=== PATIENT | male | born 1965 | race Caucasian/White ===

== ENCOUNTER 2017-05-08 15:30 | Inpatient (IN) | payer MEDICAID ==
[2017-05-08] MEDS: LACTATED RINGER'S 1,000 ML IV (15:57)
[2017-05-08] MEDS: SOD CHLORIDE 0.9% 2,000 ML IV (16:01)
[2017-05-08] MEDS: HYDROmorphONE 1 MG/ML SYG IV ×2 (16:06→17:31)
[2017-05-08] MEDS: HYDROCORTISONE 100 MG INJ IV ×3 (16:07→23:23)
[2017-05-08] MEDS: ONDANSETRON 4 MG INJ IV (16:08)
[2017-05-08 16:15] LABS: ADD MAN DIFF? NO
[2017-05-08 16:18] LABS: WHITE BLOOD COUNT 7.2 10^3/ul (4.8-10.8)
[2017-05-08 16:18] LABS: BASOPHILS % 0.3 % (0.0-2.0); EOSINOPHILS % 0.6 % (0.0-7.0); LYMPHOCYTES # 1.7 10^3/ul (0.8-2.9); MEAN CORPUSCULAR HEMOGLOBIN 27.2 pg (29.0-33.0); MEAN CORPUSCULAR HGB CONC 32.4 g/dl (32.0-37.0); MEAN CORPUSCULAR VOLUME 83.9 fl (82.0-101.0); MEAN PLATELET VOLUME 10.7 fl (7.4-10.4); MONOCYTE # 0.4 10^3/ul (0.3-0.9); MONOCYTES % 5.3 % (0.0-11.0); NEUTROPHIL # 5.1 10^3/ul (1.6-7.5); NEUTROPHILS % 70.5 % (39.0-77.0); PLATELET COUNT 238 10^3/UL (140-415); RED BLOOD COUNT 4.41 10^6/ul (4.70-6.10); RED CELL DISTRIBUTION WIDTH 14.6 % (11.5-14.5)
[2017-05-08 16:36] LABS: ANION GAP 18 (8-16); BLOOD UREA NITROGEN 40 mg/dl (7-20); CALCIUM 8.9 mg/dl (8.4-10.2); CARBON DIOXIDE 28 mmol/L (21-31); CHLORIDE 101 mmol/L (97-110); CREATININE 1.34 mg/dl (0.61-1.24); GLUCOSE 153 mg/dl (70-220); POTASSIUM 4.5 mmol/L (3.5-5.1); SODIUM 142 mmol/L (135-144)
[2017-05-08 16:51] LABS: LACTIC ACID 3.7 mmol/L (0.5-2.0)
[2017-05-08] MEDS: AZTREONAM 1 GM/NS (PMX) 50 ML IVPB (18:17)
[2017-05-08] MEDS ORDERED: NA PHOSPHATE/BIPHOS 133 ML ENEMA PR (18:30)
[2017-05-08] MEDS ORDERED: NACL 0.9% 3 ML SYG IV (18:30)
[2017-05-08] MEDS ORDERED: MAGNESIUM HYDROXIDE 30ML CUP PO (18:30)
[2017-05-08] MEDS ORDERED: ACETAMINOPHEN 325 MG TAB PO (18:30)
[2017-05-08] MEDS ORDERED: DOCUSATE SODIUM 100 MG CAP PO (18:30)
[2017-05-08 18:53] LABS: CREATINE KINASE 273 IU/L (23-200)
[2017-05-08] MEDS ORDERED: GLUCAGON 1 MG INJ IM (19:45)
[2017-05-08] MEDS ORDERED: DEXTROSE 50% 50 ML SYRINGE IV ×2 (19:45)
[2017-05-08] MEDS ORDERED: GLUCOSE GEL 15 GRAM TUBE PO ×2 (19:45)
[2017-05-08] MEDS ORDERED: GLUCOSE GEL 15 GRAM TUBE BUCCAL (19:45)
[2017-05-08 19:52] LABS: THYROID STIMULATING HORMONE 0.529 MIU/L (0.465-4.680)
[2017-05-08 19:52] LABS: LACTIC ACID 1.4 mmol/L (0.5-2.0)
[2017-05-08] MEDS: VANCOMYCIN 1 GM (PMX) 250 ML IVPB (19:54)
[2017-05-08 20:03] LABS: ALANINE AMINOTRANSFERASE 48 IU/L (13-69); ALBUMIN 4.1 g/dl (3.3-4.9); ALKALINE PHOSPHATASE 86 IU/L (42-121); ASPARTATE AMINO TRANSFERASE 66 IU/L (15-46); BILIRUBIN,INDIRECT 0.2 mg/dl (0-1.1); BILIRUBIN,TOTAL 0.2 mg/dl (0.2-1.3)
[2017-05-08] MEDS: HYDROmorphONE 0.5 MG/0.5 ML SYG IV (20:14)
[2017-05-08] MEDS: SOD CHLORIDE 0.9% 1,000 ML IV (20:18)
[2017-05-08] MEDS: INSULIN ASPART [NOVOLOG] 3 ML PEN SC (21:00)
[2017-05-08 21:39] LABS: LACTIC ACID 1.4 mmol/L (0.5-2.0)
[2017-05-08] MEDS: INSULIN GLARGINE [LANtus] 3 ML PEN SC (23:06)
[2017-05-09] MEDS: HYDROmorphONE 0.5 MG/0.5 ML SYG IV ×6 (00:32→20:10)
[2017-05-09] MEDS: ACCU-CHEK XX (02:00)
[2017-05-09] MEDS: SOD CHLORIDE 0.9% 1,000 ML IV ×2 (04:24→12:17)
[2017-05-09 05:22] LABS: ADD MAN DIFF? NO
[2017-05-09 05:28] LABS: WHITE BLOOD COUNT 8.4 10^3/ul (4.8-10.8)
[2017-05-09 05:28] LABS: BASOPHILS % 0.2 % (0.0-2.0); HEMATOCRIT 31.7 % (42.0-52.0); HEMOGLOBIN 10.3 g/dl (14.0-18.0); LYMPHOCYTES # 1.3 10^3/ul (0.8-2.9); LYMPHOCYTES % 15.4 % (15.0-51.0); MEAN CORPUSCULAR HEMOGLOBIN 27.3 pg (29.0-33.0); MEAN CORPUSCULAR HGB CONC 32.5 g/dl (32.0-37.0); MEAN CORPUSCULAR VOLUME 84.1 fl (82.0-101.0); MONOCYTE # 0.5 10^3/ul (0.3-0.9); MONOCYTES % 5.4 % (0.0-11.0); NEUTROPHIL # 6.6 10^3/ul (1.6-7.5); NEUTROPHILS % 78.6 % (39.0-77.0); PLATELET COUNT 180 10^3/UL (140-415); RED BLOOD COUNT 3.77 10^6/ul (4.70-6.10); RED CELL DISTRIBUTION WIDTH 14.7 % (11.5-14.5)
[2017-05-09 06:18] LABS: ALANINE AMINOTRANSFERASE 46 IU/L (13-69); ALBUMIN 3.6 g/dl (3.3-4.9); ALKALINE PHOSPHATASE 66 IU/L (42-121); ANION GAP 11 (8-16); ASPARTATE AMINO TRANSFERASE 44 IU/L (15-46); BILIRUBIN,INDIRECT 0.3 mg/dl (0-1.1); BILIRUBIN,TOTAL 0.3 mg/dl (0.2-1.3); BLOOD UREA NITROGEN 25 mg/dl (7-20); CALCIUM 8.6 mg/dl (8.4-10.2); CARBON DIOXIDE 29 mmol/L (21-31); CHLORIDE 106 mmol/L (97-110); CREATININE 1.01 mg/dl (0.61-1.24); GLUCOSE 159 mg/dl (70-220); MAGNESIUM 2.1 mg/dl (1.7-2.5); POTASSIUM 4.5 mmol/L (3.5-5.1); SODIUM 141 mmol/L (135-144); TOTAL PROTEIN 6.6 g/dl (6.1-8.1)
[2017-05-09] MEDS: PANTOPRAZOLE (EC) 40 MG TAB PO (06:28)
[2017-05-09] MEDS: HYDROCORTISONE 100 MG INJ IV ×3 (06:28→17:22)
[2017-05-09 07:52] LABS: HEMOGLOBIN A1C 7.9 % (0-5.9)
[2017-05-09] MEDS: INSULIN ASPART [NOVOLOG] 3 ML PEN SC ×4 (08:00→20:21)
[2017-05-09 08:02] LABS: ADD UMIC YES; UR ASCORBIC ACID NEGATIVE (NEGATIVE); UR BILIRUBIN (Dip) NEGATIVE (NEGATIVE); UR BLOOD (Dip) NEGATIVE (NEGATIVE); UR CLARITY CLEAR (CLEAR); UR COLOR YELLOW (YELLOW); UR GLUCOSE (Dip) 2+ mg/dL (NEGATIVE); UR KETONES (Dip) NEGATIVE (NEGATIVE); UR LEUKOCYTE ESTERASE (Dip) NEGATIVE Leu/ul (NEGATIVE); UR NITRITE (Dip) NEGATIVE (NEGATIVE); UR RBC 4 /HPF (0-5); UR SPECIFIC GRAVITY (Dip) 1.016 (1.003-1.030); UR TOTAL PROTEIN (Dip) 1+ mg/dl (NEGATIVE); UR UROBILINOGEN (Dip) NEGATIVE (NEGATIVE); UR WBC 0 /HPF (0-5)
[2017-05-09] MEDS: FLUDROCORTISONE 0.1 MG TAB PO (08:13)
[2017-05-09] MEDS ORDERED: ENOXAPARIN 40 MG/0.4 ML SYG SC (09:00)
[2017-05-09] MEDS: ONDANSETRON 4 MG INJ IV (10:02)
[2017-05-09] MEDS: BISACODYL 10 MG SUPP PR (14:31)
[2017-05-09] MEDS: morphine 2 MG INJ IV (20:13)
[2017-05-09] MEDS: INSULIN GLARGINE [LANtus] 3 ML PEN SC (20:20)
[2017-05-10] MEDS: morphine 2 MG INJ IV ×6 (00:17→23:03)
[2017-05-10] MEDS: ACCU-CHEK XX (02:00)
[2017-05-10] MEDS: HYDROCORTISONE 100 MG INJ IV ×3 (02:18→11:54)
[2017-05-10] MEDS ORDERED: VANCOMYCIN IV PER PHARMACY XX (05:00)
[2017-05-10] MEDS: PANTOPRAZOLE (EC) 40 MG TAB PO (05:30)
[2017-05-10] MEDS ORDERED: PIPER-TAZO 3.375 GM IV (PMX) 50 ML IV (06:00)
[2017-05-10] MEDS: INSULIN ASPART [NOVOLOG] 3 ML PEN SC ×4 (08:00→20:40)
[2017-05-10] MEDS: FLUDROCORTISONE 0.1 MG TAB PO (08:07)
[2017-05-10] MEDS: VANCOMYCIN 1.5 GM in DEXTROSE 5% 500 ML IVPB (08:07)
[2017-05-10] MEDS ORDERED: HYDROmorphONE 2 MG TAB PO (15:00)
[2017-05-10 15:18] LABS: ADD MAN DIFF? NO
[2017-05-10 15:20] LABS: BASOPHILS % 0.2 % (0.0-2.0); EOSINOPHILS % 0.2 % (0.0-7.0); HEMATOCRIT 34.8 % (42.0-52.0); HEMOGLOBIN 11.4 g/dl (14.0-18.0); LYMPHOCYTES # 1.3 10^3/ul (0.8-2.9); LYMPHOCYTES % 15.7 % (15.0-51.0); MEAN CORPUSCULAR HEMOGLOBIN 27.1 pg (29.0-33.0); MEAN CORPUSCULAR HGB CONC 32.8 g/dl (32.0-37.0); MEAN CORPUSCULAR VOLUME 82.9 fl (82.0-101.0); MEAN PLATELET VOLUME 10.7 fl (7.4-10.4); MONOCYTE # 0.3 10^3/ul (0.3-0.9); MONOCYTES % 4.1 % (0.0-11.0); NEUTROPHIL # 6.6 10^3/ul (1.6-7.5); NEUTROPHILS % 79.4 % (39.0-77.0); PLATELET COUNT 179 10^3/UL (140-415); RED CELL DISTRIBUTION WIDTH 14.7 % (11.5-14.5)
[2017-05-10 15:20] LABS: WHITE BLOOD COUNT 8.3 10^3/ul (4.8-10.8)
[2017-05-10 15:37] LABS: ALANINE AMINOTRANSFERASE 48 IU/L (13-69); ALBUMIN 3.9 g/dl (3.3-4.9); ALBUMIN/GLOBULIN RATIO 1.18; ALKALINE PHOSPHATASE 71 IU/L (42-121); ANION GAP 12 (8-16); ASPARTATE AMINO TRANSFERASE 42 IU/L (15-46); BILIRUBIN,INDIRECT 0.2 mg/dl (0-1.1); BILIRUBIN,TOTAL 0.2 mg/dl (0.2-1.3); BLOOD UREA NITROGEN 22 mg/dl (7-20); CALCIUM 8.8 mg/dl (8.4-10.2); CARBON DIOXIDE 33 mmol/L (21-31); CHLORIDE 100 mmol/L (97-110); CREATININE 1.04 mg/dl (0.61-1.24); GLUCOSE 176 mg/dl (70-220); POTASSIUM 3.6 mmol/L (3.5-5.1); SODIUM 141 mmol/L (135-144); TOTAL PROTEIN 7.2 g/dl (6.1-8.1)
[2017-05-10] MEDS: VANCOMYCIN 1.25 GM in SODIUM CHLORIDE 0.45 % 250 ML IVPB (17:15)
[2017-05-10 17:54] LABS: IRON 30 ug/dl (35-150)
[2017-05-10] MEDS: LACTATED RINGER'S 500 ML IV (17:55)
[2017-05-10 18:03] LABS: % IRON SATURATION 8 % SAT (22-52); TOTAL IRON BINDING CAPACITY 365 ug/dl (241-421)
[2017-05-10 18:39] LABS: FERRITIN 8.5 ng/ml (11.1-264.0)
[2017-05-10] MEDS: CYANOCOBALAMIN 1000 MCG INJ IM (20:29)
[2017-05-10] MEDS: HYDROCORTISONE 5 MG TAB PO (20:29)
[2017-05-10] MEDS: INSULIN GLARGINE [LANtus] 3 ML PEN SC (20:39)
[2017-05-10] MEDS ORDERED: HYDROCORTISONE 5 MG TAB PO (21:00)
[2017-05-11] MEDS: ACCU-CHEK XX (02:00)
[2017-05-11] MEDS: morphine 2 MG INJ IV ×5 (03:16→21:45)
[2017-05-11] MEDS: VANCOMYCIN 1.25 GM in SODIUM CHLORIDE 0.45 % 250 ML IVPB ×2 (05:39→19:21)
[2017-05-11] MEDS: PANTOPRAZOLE (EC) 40 MG TAB PO (05:39)
[2017-05-11 07:01] LABS: ADD MAN DIFF? NO
[2017-05-11 07:08] LABS: WHITE BLOOD COUNT 7.1 10^3/ul (4.8-10.8)
[2017-05-11 07:08] LABS: BASOPHIL # 0.1 10^3/ul (0.0-0.1); BASOPHILS % 0.7 % (0.0-2.0); EOSINOPHILS # 0.2 10^3/ul (0.0-0.5); EOSINOPHILS % 2.5 % (0.0-7.0); HEMATOCRIT 33.2 % (42.0-52.0); HEMOGLOBIN 10.6 g/dl (14.0-18.0); LYMPHOCYTES # 2.6 10^3/ul (0.8-2.9); LYMPHOCYTES % 35.9 % (15.0-51.0); MEAN CORPUSCULAR HEMOGLOBIN 26.8 pg (29.0-33.0); MEAN CORPUSCULAR HGB CONC 31.9 g/dl (32.0-37.0); MEAN CORPUSCULAR VOLUME 84.1 fl (82.0-101.0); MEAN PLATELET VOLUME 11.6 fl (7.4-10.4); MONOCYTE # 0.7 10^3/ul (0.3-0.9); MONOCYTES % 10.4 % (0.0-11.0); NEUTROPHIL # 3.6 10^3/ul (1.6-7.5); NEUTROPHILS % 50.1 % (39.0-77.0); PLATELET COUNT 170 10^3/UL (140-415); RED BLOOD COUNT 3.95 10^6/ul (4.70-6.10); RED CELL DISTRIBUTION WIDTH 14.6 % (11.5-14.5)
[2017-05-11 07:19] LABS: ANION GAP 13 (8-16); BLOOD UREA NITROGEN 27 mg/dl (7-20); CALCIUM 8.4 mg/dl (8.4-10.2); CARBON DIOXIDE 34 mmol/L (21-31); CHLORIDE 102 mmol/L (97-110); GLUCOSE 99 mg/dl (70-220); MAGNESIUM 1.8 mg/dl (1.7-2.5); PHOSPHORUS 3.9 mg/dl (2.5-4.9); POTASSIUM 4.1 mmol/L (3.5-5.1); SODIUM 145 mmol/L (135-144)
[2017-05-11] MEDS: HYDROCORTISONE 5 MG TAB PO ×3 (07:40→20:46)
[2017-05-11] MEDS: INSULIN ASPART [NOVOLOG] 3 ML PEN SC ×4 (08:00→20:49)
[2017-05-11] MEDS: FLUDROCORTISONE 0.1 MG TAB PO (08:49)
[2017-05-11] MEDS: PNEUMOC 13-VAL CONJ-DIP CRM/PF 0.5 ML SYR IM* (15:06)
[2017-05-11 18:11] LABS: VANCOMYCIN,TROUGH 16.5 ug/ml (10.0-20.0)
[2017-05-11] MEDS: TAMSULOSIN (SR) 0.4 MG CAP PO (20:46)
[2017-05-11] MEDS: INSULIN GLARGINE [LANtus] 3 ML PEN SC (20:47)
[2017-05-11 21:38] LABS: ALDOSTERONE 1 ng/dL
[2017-05-12] MEDS: morphine 2 MG INJ IV ×7 (01:47→23:54)
[2017-05-12] MEDS: ACCU-CHEK XX (02:00)
[2017-05-12] MEDS: VANCOMYCIN 1 GM 250 ML IVPB ×2 (05:34→17:20)
[2017-05-12] MEDS: PANTOPRAZOLE (EC) 40 MG TAB PO (05:35)
[2017-05-12] MEDS: HYDROCORTISONE 5 MG TAB PO ×3 (06:33→21:01)
[2017-05-12 06:34] LABS: ADD MAN DIFF? NO
[2017-05-12 06:38] LABS: BASOPHILS % 0.4 % (0.0-2.0); EOSINOPHILS # 0.3 10^3/ul (0.0-0.5); HEMATOCRIT 34.1 % (42.0-52.0); HEMOGLOBIN 11.2 g/dl (14.0-18.0); LYMPHOCYTES # 2.2 10^3/ul (0.8-2.9); LYMPHOCYTES % 32.1 % (15.0-51.0); MEAN CORPUSCULAR HEMOGLOBIN 27.5 pg (29.0-33.0); MEAN CORPUSCULAR HGB CONC 32.8 g/dl (32.0-37.0); MEAN CORPUSCULAR VOLUME 83.8 fl (82.0-101.0); MEAN PLATELET VOLUME 11.4 fl (7.4-10.4); MONOCYTE # 0.7 10^3/ul (0.3-0.9); MONOCYTES % 10.5 % (0.0-11.0); NEUTROPHIL # 3.7 10^3/ul (1.6-7.5); NEUTROPHILS % 52.7 % (39.0-77.0); PLATELET COUNT 201 10^3/UL (140-415); RED BLOOD COUNT 4.07 10^6/ul (4.70-6.10); RED CELL DISTRIBUTION WIDTH 14.4 % (11.5-14.5)
[2017-05-12 07:10] LABS: ANION GAP 11 (8-16); BLOOD UREA NITROGEN 28 mg/dl (7-20); CALCIUM 8.7 mg/dl (8.4-10.2); CARBON DIOXIDE 34 mmol/L (21-31); CHLORIDE 100 mmol/L (97-110); CREATININE 1.12 mg/dl (0.61-1.24); GLUCOSE 90 mg/dl (70-220); MAGNESIUM 1.7 mg/dl (1.7-2.5); POTASSIUM 3.1 mmol/L (3.5-5.1); SODIUM 142 mmol/L (135-144)
[2017-05-12] MEDS: INSULIN ASPART [NOVOLOG] 3 ML PEN SC ×4 (08:00→21:00)
[2017-05-12] MEDS: FLUDROCORTISONE 0.1 MG TAB PO (08:32)
[2017-05-12] MEDS: POTASSIUM CHLORIDE 20 MEQ POWDER FOR ORAL SOLN PO (11:57)
[2017-05-12 13:31] LABS: ADRENOCORTICOTROPIC HORMONE 32 pg/mL (6-50)
[2017-05-12] MEDS: POTASSIUM CHLORIDE (SR) 20 MEQ TAB PO (16:12)
[2017-05-12] MEDS: TAMSULOSIN (SR) 0.4 MG CAP PO (21:02)
[2017-05-12] MEDS: INSULIN GLARGINE [LANtus] 3 ML PEN SC (21:05)
[2017-05-13] MEDS: ACCU-CHEK XX (02:00)
[2017-05-13] MEDS: morphine 2 MG INJ IV ×5 (04:54→21:41)
[2017-05-13] MEDS: PANTOPRAZOLE (EC) 40 MG TAB PO (05:45)
[2017-05-13] MEDS: VANCOMYCIN 1 GM 250 ML IVPB ×2 (05:45→18:45)
[2017-05-13 06:33] LABS: ADD MAN DIFF? NO
[2017-05-13 06:41] LABS: BASOPHILS % 0.4 % (0.0-2.0); EOSINOPHILS # 0.3 10^3/ul (0.0-0.5); EOSINOPHILS % 4.3 % (0.0-7.0); HEMOGLOBIN 10.8 g/dl (14.0-18.0); LYMPHOCYTES # 2.2 10^3/ul (0.8-2.9); LYMPHOCYTES % 31.4 % (15.0-51.0); MEAN CORPUSCULAR HEMOGLOBIN 27.3 pg (29.0-33.0); MEAN CORPUSCULAR HGB CONC 32.7 g/dl (32.0-37.0); MEAN CORPUSCULAR VOLUME 83.3 fl (82.0-101.0); MONOCYTE # 0.8 10^3/ul (0.3-0.9); MONOCYTES % 11.5 % (0.0-11.0); NEUTROPHIL # 3.6 10^3/ul (1.6-7.5); PLATELET COUNT 187 10^3/UL (140-415); RED BLOOD COUNT 3.96 10^6/ul (4.70-6.10); RED CELL DISTRIBUTION WIDTH 14.7 % (11.5-14.5)
[2017-05-13] MEDS: HYDROCORTISONE 5 MG TAB PO ×3 (06:56→20:35)
[2017-05-13 06:58] LABS: ANION GAP 13 (8-16); BLOOD UREA NITROGEN 32 mg/dl (7-20); CALCIUM 8.5 mg/dl (8.4-10.2); CARBON DIOXIDE 32 mmol/L (21-31); CHLORIDE 103 mmol/L (97-110); CREATININE 1.18 mg/dl (0.61-1.24); GLUCOSE 118 mg/dl (70-220); MAGNESIUM 1.8 mg/dl (1.7-2.5); PHOSPHORUS 3.9 mg/dl (2.5-4.9); POTASSIUM 4.3 mmol/L (3.5-5.1); SODIUM 144 mmol/L (135-144)
[2017-05-13] MEDS: INSULIN ASPART [NOVOLOG] 3 ML PEN SC ×4 (08:00→20:37)
[2017-05-13] MEDS: FLUDROCORTISONE 0.1 MG TAB PO (08:42)
[2017-05-13 09:58] LABS: RENIN, PLASMA 0.61 ng/mL/h (0.25-5.82)
[2017-05-13 17:54] LABS: VANCOMYCIN,TROUGH 14.1 ug/ml (10.0-20.0)
[2017-05-13] MEDS: TAMSULOSIN (SR) 0.4 MG CAP PO (20:36)
[2017-05-13] MEDS: INSULIN GLARGINE [LANtus] 3 ML PEN SC (20:38)
[2017-05-14] MEDS: ACCU-CHEK XX (02:00)
[2017-05-14] MEDS: morphine 2 MG INJ IV ×6 (02:15→23:36)
[2017-05-14] MEDS: PANTOPRAZOLE (EC) 40 MG TAB PO (05:32)
[2017-05-14] MEDS: VANCOMYCIN 1 GM 250 ML IVPB (05:33)
[2017-05-14] MEDS: HYDROCORTISONE 5 MG TAB PO ×3 (07:47→20:22)
[2017-05-14] MEDS: INSULIN ASPART [NOVOLOG] 3 ML PEN SC ×4 (07:50→20:18)
[2017-05-14] MEDS: FLUDROCORTISONE 0.1 MG TAB PO (08:44)
[2017-05-14] MEDS: INSULIN GLARGINE [LANtus] 3 ML PEN SC (20:17)
[2017-05-14] MEDS: TAMSULOSIN (SR) 0.4 MG CAP PO (20:22)
[2017-05-15] MEDS: ACCU-CHEK XX (01:19)
[2017-05-15] MEDS: morphine 2 MG INJ IV ×3 (04:20→12:57)
[2017-05-15] MEDS: PANTOPRAZOLE (EC) 40 MG TAB PO (05:40)
[2017-05-15] MEDS: INSULIN ASPART [NOVOLOG] 3 ML PEN SC ×2 (07:53→11:58)
[2017-05-15] MEDS: FLUDROCORTISONE 0.1 MG TAB PO (08:40)
[2017-05-15] MEDS: HYDROCORTISONE 5 MG TAB PO ×2 (08:41→12:28)
[2017-05-15 12:29] LABS: ADD MAN DIFF? NO
[2017-05-15 12:36] LABS: BASOPHILS % 0.3 % (0.0-2.0); EOSINOPHILS # 0.2 10^3/ul (0.0-0.5); EOSINOPHILS % 3.5 % (0.0-7.0); HEMATOCRIT 32.4 % (42.0-52.0); HEMOGLOBIN 10.6 g/dl (14.0-18.0); LYMPHOCYTES # 1.6 10^3/ul (0.8-2.9); LYMPHOCYTES % 23.7 % (15.0-51.0); MEAN CORPUSCULAR HEMOGLOBIN 27.3 pg (29.0-33.0); MEAN CORPUSCULAR HGB CONC 32.7 g/dl (32.0-37.0); MEAN CORPUSCULAR VOLUME 83.5 fl (82.0-101.0); MONOCYTE # 0.6 10^3/ul (0.3-0.9); MONOCYTES % 8.5 % (0.0-11.0); NEUTROPHIL # 4.4 10^3/ul (1.6-7.5); NEUTROPHILS % 63.6 % (39.0-77.0); PLATELET COUNT 182 10^3/UL (140-415); RED BLOOD COUNT 3.88 10^6/ul (4.70-6.10); RED CELL DISTRIBUTION WIDTH 14.6 % (11.5-14.5)
[2017-05-15 12:36] LABS: WHITE BLOOD COUNT 6.9 10^3/ul (4.8-10.8)
[2017-05-15 12:55] LABS: ANION GAP 14 (8-16); BLOOD UREA NITROGEN 36 mg/dl (7-20); CALCIUM 8.7 mg/dl (8.4-10.2); CARBON DIOXIDE 31 mmol/L (21-31); CHLORIDE 101 mmol/L (97-110); CREATININE 1.18 mg/dl (0.61-1.24); GLUCOSE 109 mg/dl (70-220); POTASSIUM 3.9 mmol/L (3.5-5.1); SODIUM 142 mmol/L (135-144)
== END 2017-05-15 14:58 | disposition home health service (06) | DRG 644 ==
LOC: E/R 15:30 → PP2 18:28
PROVIDERS: Internal Medicine
DX: E27.2 Addisonian crisis (principal); E87.2 Acidosis; N17.9 Acute kidney failure, unspecified; R78.81 Bacteremia; E11.9 Type 2 diabetes mellitus without complications; E87.6 Hypokalemia; D64.9 Anemia, unspecified; K59.00 Constipation, unspecified; R53.81 Other malaise
CPT/HCPCS: 36415; 71045; 76775; 80048; 80053; 80076; 80202; 81001; 82024; 82088; 82533; 82550; 82607; 82728; 82962; 83036; 83540; 83605; 83735; 84100; 84244; 84443; 85025; 87040; 87086; 90670; 93306; 96374; 96375; 96376; 97110; 97163; 97530; 99291-25

== ENCOUNTER 2017-11-03 17:34 | Observation (INO) | payer MEDICAID ==
[2017-11-03] MEDS: SOD CHLORIDE 0.9% 1,000 ML IV (21:19)
[2017-11-03] MEDS: morphine 4 MG/ML VIAL IV (21:20)
[2017-11-03] MEDS: ONDANSETRON 4 MG INJ IV (21:20)
[2017-11-03] MEDS: DIPHENHYDRAMINE 50 MG INJ IV (21:20)
[2017-11-03 21:32] LABS: ADD MAN DIFF? NO
[2017-11-03 21:40] LABS: BASOPHILS % 0.3 % (0.0-2.0); EOSINOPHILS # 0.2 10^3/ul (0.0-0.5); EOSINOPHILS % 1.8 % (0.0-7.0); HEMATOCRIT 34.5 % (42.0-52.0); HEMOGLOBIN 10.9 g/dl (14.0-18.0); LYMPHOCYTES # 1.6 10^3/ul (0.8-2.9); LYMPHOCYTES % 15.8 % (15.0-51.0); MEAN CORPUSCULAR HEMOGLOBIN 28.2 pg (29.0-33.0); MEAN CORPUSCULAR HGB CONC 31.6 g/dl (32.0-37.0); MEAN CORPUSCULAR VOLUME 89.1 fl (82.0-101.0); MEAN PLATELET VOLUME 9.8 fl (7.4-10.4); MONOCYTES % 9.8 % (0.0-11.0); NEUTROPHIL # 7.3 10^3/ul (1.6-7.5); NEUTROPHILS % 71.6 % (39.0-77.0); PLATELET COUNT 317 10^3/UL (140-415); RED BLOOD COUNT 3.87 10^6/ul (4.70-6.10); RED CELL DISTRIBUTION WIDTH 14.5 % (11.5-14.5)
[2017-11-03 21:40] LABS: WHITE BLOOD COUNT 10.2 10^3/ul (4.8-10.8)
[2017-11-03 21:59] LABS: INR 1.09; PROTIME 14.2 Sec (11.9-14.9); PT RATIO 1.1
[2017-11-03 22:00] LABS: LACTIC ACID 1.4 mmol/L (0.5-2.0)
[2017-11-03 22:00] LABS: ALANINE AMINOTRANSFERASE 100 IU/L (13-69); ALBUMIN/GLOBULIN RATIO 1.11; ALKALINE PHOSPHATASE 179 IU/L (42-121); ANION GAP 17 (8-16); BILIRUBIN,INDIRECT 0.3 mg/dl (0-1.1); BILIRUBIN,TOTAL 0.3 mg/dl (0.2-1.3); BLOOD UREA NITROGEN 38 mg/dl (7-20); CALCIUM 8.6 mg/dl (8.4-10.2); CARBON DIOXIDE 26 mmol/L (21-31); CHLORIDE 107 mmol/L (97-110); GLUCOSE 122 mg/dl (70-220); PARTIAL THROMBOPLASTIN TIME 39.2 Sec (25.0-35.0); POTASSIUM 4.7 mmol/L (3.5-5.1); SODIUM 145 mmol/L (135-144); TOTAL PROTEIN 7.6 g/dl (6.1-8.1)
[2017-11-03 22:01] LABS: ASPARTATE AMINO TRANSFERASE 71 IU/L (15-46)
[2017-11-03 22:10] LABS: TROPONIN-I < 0.010 ng/ml (0.000-0.120)
[2017-11-04] MEDS: SOD CHLORIDE 0.9% 1,000 ML IV (01:13)
[2017-11-04] MEDS ORDERED: DOCUSATE SODIUM 100 MG CAP PO (03:30)
[2017-11-04] MEDS ORDERED: NACL 0.9% 3 ML SYG IV (03:30)
[2017-11-04] MEDS ORDERED: ACETAMINOPHEN 325 MG TAB PO (03:30)
[2017-11-04] MEDS: ACETAMINOPHEN 325 MG TAB PO ×2 (03:46→03:59)
[2017-11-04] MEDS: HYDROCODONE/APAP (5/325) TAB PO ×2 (03:46→10:24)
[2017-11-04 06:06] LABS: ADD MAN DIFF? NO
[2017-11-04 06:09] LABS: BASOPHILS % 0.5 % (0.0-2.0); EOSINOPHILS # 0.3 10^3/ul (0.0-0.5); EOSINOPHILS % 3.3 % (0.0-7.0); HEMATOCRIT 29.9 % (42.0-52.0); HEMOGLOBIN 9.4 g/dl (14.0-18.0); LYMPHOCYTES # 1.9 10^3/ul (0.8-2.9); LYMPHOCYTES % 23.1 % (15.0-51.0); MEAN CORPUSCULAR HEMOGLOBIN 28.6 pg (29.0-33.0); MEAN CORPUSCULAR HGB CONC 31.4 g/dl (32.0-37.0); MEAN CORPUSCULAR VOLUME 90.9 fl (82.0-101.0); MEAN PLATELET VOLUME 10.1 fl (7.4-10.4); MONOCYTE # 0.8 10^3/ul (0.3-0.9); MONOCYTES % 9.8 % (0.0-11.0); NEUTROPHIL # 5.1 10^3/ul (1.6-7.5); NEUTROPHILS % 62.2 % (39.0-77.0); PLATELET COUNT 247 10^3/UL (140-415); RED BLOOD COUNT 3.29 10^6/ul (4.70-6.10); RED CELL DISTRIBUTION WIDTH 14.6 % (11.5-14.5)
[2017-11-04 06:09] LABS: WHITE BLOOD COUNT 8.2 10^3/ul (4.8-10.8)
[2017-11-04 06:28] LABS: HEMOGLOBIN A1C 7.5 % (0-5.9)
[2017-11-04 06:40] LABS: ALANINE AMINOTRANSFERASE 77 IU/L (13-69); ALBUMIN/GLOBULIN RATIO 0.96; ALKALINE PHOSPHATASE 139 IU/L (42-121); ANION GAP 13 (8-16); ASPARTATE AMINO TRANSFERASE 45 IU/L (15-46); BLOOD UREA NITROGEN 39 mg/dl (7-20); CALCIUM 7.8 mg/dl (8.4-10.2); CARBON DIOXIDE 26 mmol/L (21-31); CHLORIDE 113 mmol/L (97-110); CHOL/HDL RATIO 5.2 RATIO; CHOLESTEROL 89 mg/dl (100-200); CREATININE 1.52 mg/dl (0.61-1.24); GLUCOSE 142 mg/dl (70-220); HDL CHOLESTEROL 17 mg/dl (28-71); MAGNESIUM 2.6 mg/dl (1.7-2.5); POTASSIUM 5.5 mmol/L (3.5-5.1); SODIUM 146 mmol/L (135-144); TOTAL PROTEIN 6.1 g/dl (6.1-8.1); TRIGLYCERIDES 103 mg/dl (0-149)
[2017-11-04 06:41] LABS: LDL CHOLESTEROL,CALCULATED 51 mg/dl
[2017-11-04 06:49] LABS: FREE THYROXINE INDEX (Calc) 2.94 ug/ml (0.65-3.89); T3 UPTAKE 40.8 % (23.5-40.5); T4 (THYROXINE) 7.2 ug/dl (5.5-11.0)
[2017-11-04] MEDS: INSULIN ASPART [NOVOLOG] 3 ML PEN SC ×4 (07:47→20:57)
[2017-11-04] MEDS: MIDODRINE 5 MG TAB PO ×2 (08:31→20:36)
[2017-11-04] MEDS: HYDROCORTISONE 5 MG TAB PO (08:31)
[2017-11-04] MEDS: NA POLYST SULFON 15 GM/60 ML BTL PO (08:32)
[2017-11-04] MEDS: DEXTROSE 5%-0.45% NACL 1,000 ML IV (09:27)
[2017-11-04] MEDS: VANCOMYCIN 1 GM (PMX) 250 ML IVPB ×2 (09:27→13:21)
[2017-11-04] MEDS ORDERED: VANCOMYCIN IV PER PHARMACY XX (09:30)
[2017-11-04 09:49] LABS: ADD UMIC YES; UR ASCORBIC ACID NEGATIVE (NEGATIVE); UR BACTERIA FEW /HPF (NONE SEEN); UR BILIRUBIN (Dip) NEGATIVE (NEGATIVE); UR BLOOD (Dip) 1+ mg/dL (NEGATIVE); UR CLARITY CLEAR (CLEAR); UR COLOR YELLOW (YELLOW); UR GLUCOSE (Dip) NEGATIVE (NEGATIVE); UR KETONES (Dip) NEGATIVE (NEGATIVE); UR LEUKOCYTE ESTERASE (Dip) NEGATIVE Leu/ul (NEGATIVE); UR NITRITE (Dip) NEGATIVE (NEGATIVE); UR RBC 19 /HPF (0-5); UR SPECIFIC GRAVITY (Dip) 1.018 (1.003-1.030); UR TOTAL PROTEIN (Dip) 1+ mg/dl (NEGATIVE); UR UROBILINOGEN (Dip) 2+ mg/dL (NEGATIVE); UR WBC 1 /HPF (0-5)
[2017-11-04 10:27] LABS: AMPHETAMINE/METHAMPHETAMINE Negative (NEGATIVE); BARBITURATES Negative (NEGATIVE); BENZODIAZEPINES Negative (NEGATIVE); CANNABINOIDS Negative (NEGATIVE)
[2017-11-04 10:36] LABS: COCAINE Positive (NEGATIVE); OPIATES Positive (NEGATIVE)
[2017-11-04] MEDS: PREGABALIN 75 MG CAP PO ×2 (14:20→21:00)
[2017-11-04] MEDS: CIPROFLOXACIN 400MG/D5W 200 ML IVPB (20:48)
[2017-11-04] MEDS: INSULIN DETEMIR [LEVEMIR] (100 UNITS/ML) SYG SC (20:57)
[2017-11-04] MEDS: DIPHENHYDRAMINE 25 MG CAP PO (22:01)
[2017-11-04] MEDS: VANCOMYCIN 750 MG in SOD CHLORIDE 0.9% 150 ML IVPB (23:11)
[2017-11-05] MEDS ORDERED: ACCU-CHEK XX (02:00)
[2017-11-05 06:30] LABS: ADD MAN DIFF? NO
[2017-11-05 06:40] LABS: WHITE BLOOD COUNT 6.8 10^3/ul (4.8-10.8)
[2017-11-05 06:40] LABS: BASOPHILS % 0.4 % (0.0-2.0); EOSINOPHILS # 0.3 10^3/ul (0.0-0.5); HEMOGLOBIN 9.8 g/dl (14.0-18.0); LYMPHOCYTES # 1.5 10^3/ul (0.8-2.9); LYMPHOCYTES % 21.4 % (15.0-51.0); MEAN CORPUSCULAR HEMOGLOBIN 28.4 pg (29.0-33.0); MEAN CORPUSCULAR HGB CONC 31.6 g/dl (32.0-37.0); MEAN CORPUSCULAR VOLUME 89.9 fl (82.0-101.0); MEAN PLATELET VOLUME 10.1 fl (7.4-10.4); MONOCYTE # 0.6 10^3/ul (0.3-0.9); MONOCYTES % 8.2 % (0.0-11.0); NEUTROPHIL # 4.4 10^3/ul (1.6-7.5); PLATELET COUNT 314 10^3/UL (140-415); RED BLOOD COUNT 3.45 10^6/ul (4.70-6.10); RED CELL DISTRIBUTION WIDTH 14.3 % (11.5-14.5)
[2017-11-05 07:14] LABS: ALANINE AMINOTRANSFERASE 70 IU/L (13-69); ALKALINE PHOSPHATASE 128 IU/L (42-121); ANION GAP 14 (8-16); ASPARTATE AMINO TRANSFERASE 35 IU/L (15-46); BILIRUBIN,INDIRECT 0.2 mg/dl (0-1.1); BILIRUBIN,TOTAL 0.2 mg/dl (0.2-1.3); BLOOD UREA NITROGEN 24 mg/dl (7-20); CALCIUM 8.2 mg/dl (8.4-10.2); CARBON DIOXIDE 27 mmol/L (21-31); CHLORIDE 108 mmol/L (97-110); CREATININE 1.23 mg/dl (0.61-1.24); GLUCOSE 160 mg/dl (70-220); MAGNESIUM 2.3 mg/dl (1.7-2.5); POTASSIUM 4.6 mmol/L (3.5-5.1); SODIUM 144 mmol/L (135-144); TOTAL PROTEIN 6.3 g/dl (6.1-8.1)
[2017-11-05] MEDS: INSULIN ASPART [NOVOLOG] 3 ML PEN SC ×4 (07:35→21:32)
[2017-11-05] MEDS ORDERED: GLUCOSE GEL 15 GRAM TUBE PO ×2 (08:00)
[2017-11-05] MEDS ORDERED: DEXTROSE 50% 50 ML SYRINGE IV ×2 (08:00)
[2017-11-05] MEDS ORDERED: GLUCAGON 1 MG INJ IM (08:00)
[2017-11-05] MEDS ORDERED: GLUCOSE GEL 15 GRAM TUBE BUCCAL (08:00)
[2017-11-05] MEDS: MIDODRINE 5 MG TAB PO ×2 (09:00→21:21)
[2017-11-05] MEDS: HYDROCORTISONE 5 MG TAB PO (09:52)
[2017-11-05] MEDS: PREGABALIN 75 MG CAP PO ×2 (09:52→22:07)
[2017-11-05] MEDS: BISACODYL (EC) 5 MG TAB PO (09:53)
[2017-11-05] MEDS: CIPROFLOXACIN 400MG/D5W 200 ML IVPB ×2 (10:38→21:21)
[2017-11-05] MEDS: VANCOMYCIN 750 MG in SOD CHLORIDE 0.9% 150 ML IVPB ×2 (12:05→23:48)
[2017-11-05] MEDS: HYDROCODONE/APAP (10/325) TAB PO (14:11)
[2017-11-05] MEDS: INSULIN DETEMIR [LEVEMIR] (100 UNITS/ML) SYG SC (21:31)
[2017-11-06 05:34] LABS: ADD MAN DIFF? NO
[2017-11-06 05:37] LABS: BASOPHILS % 0.3 % (0.0-2.0); EOSINOPHILS # 0.3 10^3/ul (0.0-0.5); EOSINOPHILS % 4.1 % (0.0-7.0); HEMATOCRIT 33.4 % (42.0-52.0); HEMOGLOBIN 10.6 g/dl (14.0-18.0); LYMPHOCYTES # 1.8 10^3/ul (0.8-2.9); LYMPHOCYTES % 22.9 % (15.0-51.0); MEAN CORPUSCULAR HEMOGLOBIN 27.8 pg (29.0-33.0); MEAN CORPUSCULAR HGB CONC 31.7 g/dl (32.0-37.0); MEAN CORPUSCULAR VOLUME 87.7 fl (82.0-101.0); MEAN PLATELET VOLUME 9.7 fl (7.4-10.4); MONOCYTE # 0.7 10^3/ul (0.3-0.9); MONOCYTES % 9.2 % (0.0-11.0); NEUTROPHILS % 62.1 % (39.0-77.0); PLATELET COUNT 375 10^3/UL (140-415); RED BLOOD COUNT 3.81 10^6/ul (4.70-6.10)
[2017-11-06 07:28] LABS: ALANINE AMINOTRANSFERASE 69 IU/L (13-69); ALBUMIN 3.5 g/dl (3.3-4.9); ALKALINE PHOSPHATASE 141 IU/L (42-121); ANION GAP 12 (8-16); ASPARTATE AMINO TRANSFERASE 40 IU/L (15-46); BLOOD UREA NITROGEN 23 mg/dl (7-20); CALCIUM 8.9 mg/dl (8.4-10.2); CARBON DIOXIDE 30 mmol/L (21-31); CHLORIDE 106 mmol/L (97-110); CREATININE 1.36 mg/dl (0.61-1.24); GLUCOSE 123 mg/dl (70-220); MAGNESIUM 1.9 mg/dl (1.7-2.5); POTASSIUM 4.6 mmol/L (3.5-5.1); SODIUM 143 mmol/L (135-144)
[2017-11-06] MEDS: INSULIN ASPART [NOVOLOG] 3 ML PEN SC ×5 (07:35→21:20)
[2017-11-06] MEDS: HYDROCORTISONE 5 MG TAB PO (08:53)
[2017-11-06] MEDS: CIPROFLOXACIN 400MG/D5W 200 ML IVPB ×2 (08:53→21:13)
[2017-11-06] MEDS: PREGABALIN 75 MG CAP PO ×2 (08:53→21:11)
[2017-11-06] MEDS: MIDODRINE 5 MG TAB PO ×2 (08:54→21:12)
[2017-11-06 10:47] LABS: VANCOMYCIN,TROUGH 11.6 ug/ml (10.0-20.0)
[2017-11-06] MEDS: VANCOMYCIN 750 MG in SOD CHLORIDE 0.9% 150 ML IVPB ×2 (11:29→23:16)
[2017-11-06] MEDS: HYDROCODONE/APAP (10/325) TAB PO (21:12)
[2017-11-06] MEDS: INSULIN DETEMIR [LEVEMIR] (100 UNITS/ML) SYG SC (21:20)
[2017-11-07] MEDS: HYDROCODONE/APAP (10/325) TAB PO ×3 (05:25→20:59)
[2017-11-07 05:54] LABS: ADD MAN DIFF? NO
[2017-11-07 05:57] LABS: WHITE BLOOD COUNT 10.7 10^3/ul (4.8-10.8)
[2017-11-07 05:57] LABS: BASOPHIL # 0.1 10^3/ul (0.0-0.1); BASOPHILS % 0.5 % (0.0-2.0); EOSINOPHILS # 0.4 10^3/ul (0.0-0.5); EOSINOPHILS % 3.8 % (0.0-7.0); HEMATOCRIT 34.4 % (42.0-52.0); HEMOGLOBIN 10.9 g/dl (14.0-18.0); LYMPHOCYTES # 2.1 10^3/ul (0.8-2.9); LYMPHOCYTES % 19.6 % (15.0-51.0); MEAN CORPUSCULAR HGB CONC 31.7 g/dl (32.0-37.0); MEAN CORPUSCULAR VOLUME 88.4 fl (82.0-101.0); MEAN PLATELET VOLUME 9.5 fl (7.4-10.4); MONOCYTES % 8.9 % (0.0-11.0); NEUTROPHIL # 6.9 10^3/ul (1.6-7.5); PLATELET COUNT 402 10^3/UL (140-415); RED BLOOD COUNT 3.89 10^6/ul (4.70-6.10); RED CELL DISTRIBUTION WIDTH 13.9 % (11.5-14.5)
[2017-11-07 07:29] LABS: ALANINE AMINOTRANSFERASE 72 IU/L (13-69); ALBUMIN 3.5 g/dl (3.3-4.9); ALKALINE PHOSPHATASE 130 IU/L (42-121); ANION GAP 13 (8-16); ASPARTATE AMINO TRANSFERASE 51 IU/L (15-46); BILIRUBIN,INDIRECT 0.1 mg/dl (0-1.1); BILIRUBIN,TOTAL 0.1 mg/dl (0.2-1.3); BLOOD UREA NITROGEN 33 mg/dl (7-20); CALCIUM 8.7 mg/dl (8.4-10.2); CARBON DIOXIDE 27 mmol/L (21-31); CHLORIDE 106 mmol/L (97-110); CREATININE 1.41 mg/dl (0.61-1.24); GLUCOSE 157 mg/dl (70-220); MAGNESIUM 1.9 mg/dl (1.7-2.5); POTASSIUM 5.1 mmol/L (3.5-5.1); SODIUM 141 mmol/L (135-144)
[2017-11-07] MEDS: INSULIN ASPART [NOVOLOG] 3 ML PEN SC ×4 (08:01→21:52)
[2017-11-07] MEDS: PREGABALIN 75 MG CAP PO ×2 (08:16→20:58)
[2017-11-07] MEDS: CIPROFLOXACIN 400MG/D5W 200 ML IVPB ×2 (08:16→21:48)
[2017-11-07] MEDS: MIDODRINE 5 MG TAB PO ×2 (08:17→21:00)
[2017-11-07] MEDS: HYDROCORTISONE 5 MG TAB PO (08:17)
[2017-11-07] MEDS: ONDANSETRON 4 MG INJ IV (11:43)
[2017-11-07] MEDS: VANCOMYCIN 750 MG in SOD CHLORIDE 0.9% 150 ML IVPB ×2 (11:43→23:09)
[2017-11-07] MEDS ORDERED: BENZOCAINE 10% 7 GM GEL MM (15:00)
[2017-11-07] MEDS: BENZOCAINE 20% 0.33 OZ. GEL MM ×2 (15:42→21:00)
[2017-11-07] MEDS: INSULIN DETEMIR [LEVEMIR] (100 UNITS/ML) SYG SC (21:53)
[2017-11-08] MEDS: BISACODYL (EC) 5 MG TAB PO (05:33)
[2017-11-08 05:55] LABS: ADD MAN DIFF? NO
[2017-11-08 06:05] LABS: WHITE BLOOD COUNT 9.9 10^3/ul (4.8-10.8)
[2017-11-08 06:05] LABS: BASOPHIL # 0.1 10^3/ul (0.0-0.1); BASOPHILS % 0.6 % (0.0-2.0); EOSINOPHILS # 0.3 10^3/ul (0.0-0.5); HEMATOCRIT 32.6 % (42.0-52.0); HEMOGLOBIN 10.1 g/dl (14.0-18.0); LYMPHOCYTES # 2.1 10^3/ul (0.8-2.9); LYMPHOCYTES % 20.9 % (15.0-51.0); MEAN CORPUSCULAR HEMOGLOBIN 27.4 pg (29.0-33.0); MEAN CORPUSCULAR VOLUME 88.3 fl (82.0-101.0); MEAN PLATELET VOLUME 9.7 fl (7.4-10.4); MONOCYTE # 0.7 10^3/ul (0.3-0.9); MONOCYTES % 7.2 % (0.0-11.0); NEUTROPHIL # 6.4 10^3/ul (1.6-7.5); NEUTROPHILS % 65.1 % (39.0-77.0); PLATELET COUNT 394 10^3/UL (140-415); RED BLOOD COUNT 3.69 10^6/ul (4.70-6.10)
[2017-11-08 06:47] LABS: INR 1.07; PT RATIO 1.1
[2017-11-08 07:01] LABS: ALANINE AMINOTRANSFERASE 58 IU/L (13-69); ALBUMIN 3.5 g/dl (3.3-4.9); ALBUMIN/GLOBULIN RATIO 1.02; ALKALINE PHOSPHATASE 112 IU/L (42-121); ANION GAP 12 (8-16); ASPARTATE AMINO TRANSFERASE 36 IU/L (15-46); BILIRUBIN,INDIRECT 0.1 mg/dl (0-1.1); BILIRUBIN,TOTAL 0.1 mg/dl (0.2-1.3); BLOOD UREA NITROGEN 42 mg/dl (7-20); CALCIUM 8.6 mg/dl (8.4-10.2); CARBON DIOXIDE 28 mmol/L (21-31); CHLORIDE 105 mmol/L (97-110); CREATININE 1.48 mg/dl (0.61-1.24); GLUCOSE 124 mg/dl (70-220); POTASSIUM 4.7 mmol/L (3.5-5.1); SODIUM 140 mmol/L (135-144); TOTAL PROTEIN 6.9 g/dl (6.1-8.1)
[2017-11-08] MEDS: INSULIN ASPART [NOVOLOG] 3 ML PEN SC ×3 (08:14→17:18)
[2017-11-08] MEDS: CIPROFLOXACIN 400MG/D5W 200 ML IVPB (08:14)
[2017-11-08] MEDS: BENZOCAINE 20% 0.33 OZ. GEL MM ×2 (08:15→11:55)
[2017-11-08] MEDS: PREGABALIN 75 MG CAP PO (08:16)
[2017-11-08] MEDS: MIDODRINE 5 MG TAB PO (08:21)
[2017-11-08] MEDS: HYDROCORTISONE 5 MG TAB PO (08:23)
[2017-11-08] MEDS: VANCOMYCIN 750 MG in SOD CHLORIDE 0.9% 150 ML IVPB (11:53)
[2017-11-08] MEDS: HYDROCODONE/APAP (10/325) TAB PO (12:38)
[2017-11-09] MEDS ORDERED: POLYETHYLENE GLYCOL 17 GM PACKET GTB (09:00)
== END 2017-11-08 18:00 | disposition left against medical advice (07) ==
LOC: MS2 11-06 19:15 → FTE 17:34 → MS3 11-04 02:47
DX: E11.42 Type 2 diabetes mellitus with diabetic polyneuropathy (principal); E11.610 Type 2 diabetes mellitus with diabetic neuropathic arthropathy; M25.511 Pain in right shoulder; Z79.4 Long term (current) use of insulin; E87.5 Hyperkalemia; N17.9 Acute kidney failure, unspecified; D50.9 Iron deficiency anemia, unspecified; R74.0 Nonspecific elevation of levels of transaminase and lactic acid dehydrogenase [LDH]; I95.89 Other hypotension; E27.40 Unspecified adrenocortical insufficiency; F14.10 Cocaine abuse, uncomplicated; Z88.1 Allergy status to other antibiotic agents; Z86.73 Personal history of transient ischemic attack (TIA), and cerebral infarction without residual deficits; Z83.3 Family history of diabetes mellitus
CPT/HCPCS: 36415; 73030-RT; 73221; 73610; 73630-LT; 80053; 80061; 80202; 80307; 81001; 82962; 83036; 83605; 83735; 84436; 84443; 84479; 84484; 85025; 85610; 85730; 87040; 87086; 93922; 93971; 96361; 96374; 96375; 99285-25